=== PATIENT | male | born 1985 | race Caucasian/White ===

== ENCOUNTER 2022-09-25 10:34 | Emergency (ER) | payer OTHER ==
[2022-09-25 10:40] VITALS: BP 130/85; PULSE 70; RESP 18; TEMP 98; BMI 32.5
[2022-09-25] MEDS ORDERED: KETOROLAC TROMETHAMINE 30 MG/1 ML VIAL IM ONE (11:31)
[2022-09-25 11:55] LABS: BASO % 0.9 % (0-2.0); EOS % 2.7 % (0-4.5); HEMATOCRIT 48.5 % (35.4-49); HEMOGLOBIN 16.5 GM/dL (11.7-16.9); LYMPH % 32.2 % (8-40); MCHC 34.1 g/dl (32.0-35.9); MEAN CELL VOLUME 85.2 fl (80-96); MEAN PLT VOLUME 7.7 fl (7.5-11.1); MONO % 7.2 % (3.8-10.2); PLATELET COUNT 244 10^3/uL (134-434); RBC 5.69 M/mm3 (4.00-5.60); RDW 13.6 % (11.9-15.9); WHITE BLOOD COUNT 6.7 K/mm3 (4.0-10.0)
[2022-09-25] MEDS ORDERED: KETOROLAC TROMETHAMINE 30 MG/1 ML VIAL ONE (11:58)
[2022-09-25 12:33] LABS: POTASSIUM 3.9 mmol/L (3.5-5.1)
[2022-09-25 12:36] LABS: ALBUMIN 3.8 g/dl (3.4-5.0); BLOOD UREA NITROGEN 19.8 mg/dL (7-18)
[2022-09-25 12:38] LABS: BILIRUBIN,DIRECT 0.3 mg/dL (0.0-0.2)
[2022-09-25 12:39] LABS: CREATININE 1.2 mg/dL (0.55-1.3)
[2022-09-25 12:40] LABS: BILIRUBIN,TOTAL 2.1 mg/dL (0.2-1)
== END 2022-09-25 13:27 | disposition home or self-care (01) ==
LOC: JERFT 10:34
PROC: 3E0233Z Introduction of Anti-inflammatory into Muscle, Percutaneous Approach (ICD-10-PCS; principal; 2022-09-25)
DX: M25.512 Pain in left shoulder (principal); M54.2 Cervicalgia
CPT/HCPCS: 36415; 71046-TC-FY; 80048; 80076; 82550; 84484; 85025; 93005; 93010; 99285-25